=== PATIENT | female | born 1960 | race Caucasian/White ===

== ENCOUNTER 2021-08-10 00:20 | Day surgery (SDC) | payer MEDICARE, SELFPAY ==
[2021-08-02 15:07] VITALS: BMI 19.8
[2021-08-10 06:50] VITALS: BP 171/98; PULSE 91; RESP 20; TEMP 36.2; O2SAT 97
[2021-08-10] MEDS: LACTATED RINGERS 1,000 ML 30 ML IV CONT (06:58)
--- NOTE | 2021-08-10 07:11 | WPDANESEPPF ---
Anes - Initial Pre Proc Eval Procedure: Operation Date: 08/10/21 07:30 Proposed Procedures p Excision of Right Volar Wrist Ganglion Cyst - Ammon Barber MD Date/Time: 08/10/21 07:11 Surgeon: Ammon Barber MD Pre Op Diagnosis: Right Volar Wrist Ganglion Cyst Patient Data Age: 60 Gender: F Height: 1.55 m Weight: 42.75 kg Last Vital Signs Temp 36.2 C L 08/10/21 06:50 Pulse 91 08/10/21 06:50 Resp 20 08/10/21 06:50 BP 171/98 H 08/10/21 06:50 Pulse Ox 97 08/10/21 06:50 Allergies Allergy/AdvReac Type Severity Reaction Status Date / Time chlorpheniramine AdvReac Severe Nausea and Verified 08/10/21 06:57 Vomiting dextromethorphan AdvReac Severe Nausea and Verified 08/10/21 06:57 Vomiting diphenhydramine AdvReac Severe Nausea and Verified 08/02/21 14:55 Vomiting guaifenesin AdvReac Severe Nausea and Verified 08/10/21 06:57 Vomiting ibuprofen AdvReac Severe Nausea and Verified 08/02/21 14:55 Vomiting iodine AdvReac Severe Nausea and Unverified 08/02/21 14:55 Vomiting loratadine AdvReac Severe Nausea and Verified 08/10/21 06:57 Vomiting morphine AdvReac Severe Nausea and Verified 08/02/21 14:55 Vomiting phenylephrine AdvReac Severe Nausea and Verified 08/10/21 06:57 Vomiting phenylpropanolamine AdvReac Severe Nausea and Verified 08/10/21 06:57 Vomiting phenyltoloxamine AdvReac Severe Nausea and Verified 08/10/21 06:57 Vomiting pseudoephedrine AdvReac Severe Nausea and Verified 08/10/21 06:57 Vomiting Home Medications Medication Instructions Recorded Confirmed Type desipramine [Norpramin] 25 mg PO HS 08/02/21 08/02/21 History gabapentin 300 mg PO TID 08/02/21 08/10/21 History hydrocodone-acetaminophen 1 tablet PO Q6H PRN 08/02/21 08/10/21 History metoprolol succinate 25 mg PO DAILY 08/02/21 08/10/21 History pantoprazole [Protonix] 40 mg PO QAM 08/02/21 08/10/21 History Patient hx anesthesia problems: none Family hx anesthesia problems: none Results Review: All pre-operative results and documents have been reviewed as part of the pre-operative evaluation. [facility] Past Medical History Medical History Anxiety Chronic pain syndrome Ulcerative colitis Social History Social History Smoking packs per day: 1 Smoking cigarettes per day: 20.0 Years smoked: 2 Smoking pack-years: 2.00 Smoking status: Former smoker Tobacco type: cigarettes Substance use: current Substance use type: marijuana Other substance usage details: a couple times a week. Living arrangements: with family Spiritual care concerns: No Anes - Eval Final PreProcedure Day of Procedure 08/10/21 07:11 Patient weight: normal Heart: regular rate and rhythm Lungs: clear to auscultation Airway: Mallampati scale class 1 Neurological: other (alert) Last oral intake: >/= 8 hours ASA classification: III Emergent: no Anesthetic plan: proceed Anesthesia type and monitoring: general GIVS and standard monitoring Results Review: All pre-operative results and documents have been reviewed as part of the pre-operative evaluation. Informed Consent: The patient's anesthetic plan and its attendant risks and benefits were discussed with the patient/family/POA. Questions were solicited and answers provided to the satisfaction of the patient/family/POA.
--- NOTE | 2021-08-10 07:24 | WPDHPUPDATE1 ---
History and Physical Update Update Date/Time: 08/10/21 07:24 History and Physical has been reviewed, including an updated exam of the patient. There are NO changes in the patient's condition. Risks, benefits, and alternatives have been discussed and questions answered. Patient agrees to proceed with procedure.
--- NOTE | 2021-08-10 07:25 | WPDHPUPDATE1 ---
History and Physical Update Update Date/Time: 08/10/21 07:25 History and Physical has been reviewed, including an updated exam of the patient. There are NO changes in the patient's condition. Risks, benefits, and alternatives have been discussed and questions answered. Patient agrees to proceed with procedure.
[2021-08-10] MEDS: LIDO 1%/EPINEPHRINE 1:100,000 50 ML VIAL INFILTRATE (08:13)
[2021-08-10 08:21] VITALS: BP 104/43; PULSE 59; RESP 12; O2SAT 100
[2021-08-10 08:30] VITALS: BP 112/64; PULSE 66; RESP 20
[2021-08-10 08:45] VITALS: BP 117/54; PULSE 60; RESP 20
[2021-08-10 09:15] VITALS: BP 165/67; PULSE 54; RESP 12
--- NOTE | 2021-08-11 11:50 | P.OP_ITS ---
Procedure Note - Detailed Date of Procedure 08/10/21 Pre-op Diagnosis Right Volar Wrist Ganglion Cyst Post-op Diagnosis same Procedure Performed Right open carpal tunnel release Surgeon Ammon Barber MD Anesthesia MAC Description of Procedure The site overlying the right carpal tunnel was marked in the holding area. The patient was taken to the operating room where she was placed supine on the operating table. A time-out was held and confirmed. The extremity was prepped and draped in usual fashion. Patient was given IV sedation. The marking was remade palm and locally infiltrated with 1% lidocaine with epinephrine. The tourniquet was inflated to 250 mmHg. The incision was made as marked and dis section was carried bluntly through the subcutaneous tissue to the palmar aponeurosis. This and the flexor retinaculum were incised with a 15 blade. Under 3 point retraction ligament was divided distally and proximally to completely release it. There was no unusual anatomy noted. The skin was closed with interrupted 5 0 nylon sutures. A small bandage with Len wrap was applied and the patient was discharged from the operating room stable condition Estimated Blood Loss 0 Drains No Packing No Pathology none sent Complications No immediate complications Condition stable Disposition same day
--- NOTE | 2021-08-11 16:48 | W.PM.PROC2 ---
Procedure Note - Detailed Date of Procedure 08/10/21 Pre-op Diagnosis Right Volar Wrist Ganglion Cyst Post-op Diagnosis same Procedure Performed Excision of right volar wrist ganglion cyst Surgeon Ammon Barber MD Anesthesia MAC and local Indications Tender ganglion cyst right volar wrist Findings ganglion cyst Description of Procedure The mass over the right volar wrist was marked on the patient's upper extremity in the holding area. the patient was taken to the operating room and placed supine on the operating table. The right upper extremity was prepped over a separate hand table as patient was given IV sedation. The site was marked for an incision and locally infiltrated with 1% lidocaine with epinephrine. The extremity was exsanguinated the tourniquet inflated to 250 mmHg. The dog leg incision was made as marked. The cyst was readily identified in the thin subcutaneous tissue. Part of it lay along the flexor carpi radialis. This was stripped down toward the origin of the cyst which lay over the radial carpal joint. The site where the cyst penetrated through capsule was identified and the cyst was avulsed from that point. Electrocautery was used to control bleeding. The tourniquet was released prior to closure. The skin was closed with intradermal 4-0 Monocryl sutures. The usual bandage was applied. The patient was discharged from the operating room. She has instructions in wound care and follow-up and a prescription for analgesics. Estimated Blood Loss 3 Drains No Packing No Pathology none sent Complications No immediate complications Condition stable Disposition same day
== END 2021-08-10 09:27 | disposition home or self-care (01) ==
PROVIDERS: PCP Internal Medicine; Visit Provider Plastic Surgery
PROC: (CPT 25111; principal; 2021-08-10 07:30)
DX: M67.431 Ganglion, right wrist (principal); F41.9 Anxiety disorder, unspecified; G89.4 Chronic pain syndrome; K51.90 Ulcerative colitis, unspecified, without complications; Z87.891 Personal history of nicotine dependence; F12.90 Cannabis use, unspecified, uncomplicated
CPT/HCPCS: 25111; A9270; J2250; J2405; J2704; J3010; J7120

== ENCOUNTER 2021-12-14 00:02 | Day surgery (SDC) | payer MEDICARE, SELFPAY ==
[2021-12-02 13:56] VITALS: BMI 19.5
--- NOTE | 2021-12-13 21:44 | WPDGICN ---
Assessment and Plan Assessment and plan (1) Colon cancer screening: Code(s): Z12.11 - Encounter for screening for malignant neoplasm of colon Status: Acute Assessment and Plan: Colonoscopy with possible biopsy or polypectomy or cautery or injection of substances. GI Consult Note Consult date/time: 12/13/21 21:44 HPI: Karoline Hoffman is a 61 year old female referred for colon cancer screening. She had performed a FIT (cologuard0)test which was positive. she tearfully explains that she was told by her primary care physician's office staff that you have a problem, there was blood in your stool, and you have colon cancer explain her that the Cologuard test has about 50% false positives and the other half of the time we usually find polyps. I told her that we find cancer only about 2% of the time that we have a positive Cologuard test. Explain that we can usually removed polyps. And the most colon cancer arises from a polyp Review of Systems Review of Systems: All systems reviewed & are unremarkable except as noted in HPI and below PMFSH Past Medical History Medical History Anxiety Chronic narcotic use Chronic pain syndrome HTN (hypertension) Ulcerative colitis Social History Social History Smoking packs per day: 1 Smoking cigarettes per day: 20.0 Years smoked: 2 Smoking pack-years: 2.00 Smoking status: Never smoker Tobacco type: cigarettes Alcohol intake: never Substance use: current Substance use type: marijuana Other substance usage details: Daily Living arrangements: with family Spiritual care concerns: No Meds Home Medications and Allergies Home Medications Medication Instructions Recorded Confirmed Type gabapentin 300 mg PO TID 08/02/21 12/14/21 History hydrocodone-acetaminophen 1 tablet PO Q6H PRN 08/02/21 12/14/21 History metoprolol succinate 25 mg PO DAILY 08/02/21 12/14/21 History pantoprazole [Protonix] 40 mg PO QAM 08/02/21 12/14/21 History tizanidine 4 mg PO BID PRN 11/03/21 12/14/21 History Allergies Allergy/AdvReac Type Severity Reaction Status Date / Time chlorpheniramine AdvReac Severe Nausea and Verified 12/14/21 08:09 Vomiting dextromethorphan AdvReac Severe Nausea and Verified 12/14/21 08:09 Vomiting diphenhydramine AdvReac Severe Nausea and Verified 12/14/21 08:09 Vomiting guaifenesin AdvReac Severe Nausea and Verified 12/14/21 08:09 Vomiting ibuprofen AdvReac Severe Nausea and Verified 12/14/21 08:09 Vomiting iodine AdvReac Severe Nausea and Verified 12/14/21 08:09 Vomiting loratadine AdvReac Severe Nausea and Verified 12/14/21 08:09 Vomiting morphine AdvReac Severe Nausea and Verified 12/14/21 08:09 Vomiting phenylephrine AdvReac Severe Nausea and Verified 12/14/21 08:09 Vomiting phenylpropanolamine AdvReac Severe Nausea and Verified 12/14/21 08:09 Vomiting phenyltoloxamine AdvReac Severe Nausea and Verified 12/14/21 08:09 Vomiting pseudoephedrine AdvReac Severe Nausea and Verified 12/14/21 08:09 Vomiting Exam Const: General: alert Orientation/consciousness: patient oriented x3 Resp: Auscultation: clear to auscultation bilaterally Cardio: Rhythm: regular rhythm GI: GI Palp: Yes Soft to palpation and No Tenderness to palpation present (GI) Neuro: General: patient oriented x3 [facility] Consult Billing Observation Consult 13721 New Pt Lvl 2 Strfd
[2021-12-14 07:58] VITALS: BP 187/76; PULSE 95; RESP 18; TEMP 36.8; O2SAT 95; BMI 17.4
--- NOTE | 2021-12-14 08:13 | WPDANESEPPF ---
Anes - Initial Pre Proc Eval Procedure: Operation Date: 12/14/21 09:30 Proposed Procedures p Colonoscopy - Hayden Garcia MD Date/Time: 12/14/21 08:13 Surgeon: Hayden Garcia MD Pre Op Diagnosis: positive cologuard Patient Data Age: 61 Gender: F Height: 1.55 m Weight: 47 kg Allergies Allergy/AdvReac Type Severity Reaction Status Date / Time chlorpheniramine AdvReac Severe Nausea and Verified 12/14/21 08:09 Vomiting dextromethorphan AdvReac Severe Nausea and Verified 12/14/21 08:09 Vomiting diphenhydramine AdvReac Severe Nausea and Verified 12/14/21 08:09 Vomiting guaifenesin AdvReac Severe Nausea and Verified 12/14/21 08:09 Vomiting ibuprofen AdvReac Severe Nausea and Verified 12/14/21 08:09 Vomiting iodine AdvReac Severe Nausea and Verified 12/14/21 08:09 Vomiting loratadine AdvReac Severe Nausea and Verified 12/14/21 08:09 Vomiting morphine AdvReac Severe Nausea and Verified 12/14/21 08:09 Vomiting phenylephrine AdvReac Severe Nausea and Verified 12/14/21 08:09 Vomiting phenylpropanolamine AdvReac Severe Nausea and Verified 12/14/21 08:09 Vomiting phenyltoloxamine AdvReac Severe Nausea and Verified 12/14/21 08:09 Vomiting pseudoephedrine AdvReac Severe Nausea and Verified 12/14/21 08:09 Vomiting Home Medications Medication Instructions Recorded Confirmed Type gabapentin 300 mg PO TID 08/02/21 12/14/21 History hydrocodone-acetaminophen 1 tablet PO Q6H PRN 08/02/21 12/14/21 History metoprolol succinate 25 mg PO DAILY 08/02/21 12/14/21 History pantoprazole [Protonix] 40 mg PO QAM 08/02/21 12/14/21 History tizanidine 4 mg PO BID PRN 11/03/21 12/14/21 History Patient hx anesthesia problems: none Family hx anesthesia problems: none Results Review: All pre-operative results and documents have been reviewed as part of the pre-operative evaluation. [facility] Past Medical History Medical History (Updated 12/14/21 @ 08:20 by Joselo Mccain MD) Anxiety Chronic narcotic use Chronic pain syndrome HTN (hypertension) Ulcerative colitis Social History Social History Smoking packs per day: 1 Smoking cigarettes per day: 20.0 Years smoked: 2 Smoking pack-years: 2.00 Smoking status: Never smoker Tobacco type: cigarettes Alcohol intake: never Substance use: current Substance use type: marijuana Other substance usage details: Daily Living arrangements: with family Spiritual care concerns: No Anes - Eval Final PreProcedure Day of Procedure 12/14/21 08:13 Patient weight: normal Heart: regular rate and rhythm Lungs: clear to auscultation and normal air movement Airway: Mallampati scale class II Neurological: alert and oriented Last oral intake: >/= 8 hours ASA classification: III Emergent: no Anesthetic plan: proceed Anesthesia type and monitoring: general GIVS Results Review: All pre-operative results and documents have been reviewed as part of the pre-operative evaluation. Informed Consent: The patient's anesthetic plan and its attendant risks and benefits were discussed with the patient/family/POA. Questions were solicited and answers provided to the satisfaction of the patient/family/POA.
[2021-12-14] MEDS: LACTATED RINGERS 1,000 ML 150 ML IV CONT (08:22)
[2021-12-14 09:42] VITALS: BP 176/98; PULSE 86; RESP 16; O2SAT 100
[2021-12-14 09:52] VITALS: BP 178/99; PULSE 79; RESP 21; O2SAT 100
[2021-12-14 10:02] VITALS: BP 180/85; PULSE 76; RESP 20; O2SAT 100
== END 2021-12-14 10:10 | disposition home or self-care (01) ==
PROVIDERS: PCP Internal Medicine; Visit Provider Internal Medicine Gastroenterology
PROC: 0DJD8ZZ Inspection of Lower Intestinal Tract, Via Natural or Artificial Opening Endoscopic (ICD-10-PCS; CPT 45378; principal; 2021-12-14 09:30)
DX: Z12.11 Encounter for screening for malignant neoplasm of colon (principal); R19.5 Other fecal abnormalities; K57.30 Diverticulosis of large intestine without perforation or abscess without bleeding; D12.5 Benign neoplasm of sigmoid colon; I10 Essential (primary) hypertension; F41.9 Anxiety disorder, unspecified; G89.4 Chronic pain syndrome; Z79.891 Long term (current) use of opiate analgesic; F12.90 Cannabis use, unspecified, uncomplicated
CPT/HCPCS: 45385; 88305; J2704; J7120

== ENCOUNTER 2022-01-12 01:06 | Day surgery (SDC) | payer MEDICARE, SELFPAY ==
[2022-01-03 12:32] VITALS: BMI 18.7
[2022-01-12 09:46] VITALS: BP 153/78; PULSE 73; RESP 20; TEMP 37.3; O2SAT 99
[2022-01-12] MEDS: LACTATED RINGERS 1,000 ML 150 ML IV CONT (09:53)
--- NOTE | 2022-01-12 10:23 | WPDGICN ---
Assessment and Plan Assessment and plan (1) Epigastric pain: Code(s): R10.13 - Epigastric pain Status: Acute (2) Abnormal CT scan, gastrointestinal tract: Code(s): R93.3 - Abnormal findings on diagnostic imaging of other parts of digestive tract Status: Acute Assessment and Plan: EGD with possible biopsy or dilatation or cautery. GI Consult Note Consult date/time: 01/12/22 10:23 HPI: aKroline Hoffman is a 61 year old female Who was referred for investigation of epigastric and right upper quadrant pain. This has been present for a couple of months. It is present daily it comes and goes without any particular pattern. It is at times tight at times the sore feeling. She has a lot of nausea as well. She has chronic medical conditions for which reason she takes hydrocodone but she does not use any NSAIDs. A CT scan of the abdomen was done which showed thickening of the gastric fundus as well as irregularity of the gastric antrum and proximal duodenum. She has had not a significant amount of weight loss. Review of Systems Review of Systems: All systems reviewed & are unremarkable except as noted in HPI and below PMFSH Past Medical History Medical History Anxiety Chronic narcotic use Chronic pain syndrome HTN (hypertension) Ulcerative colitis Social History Social History Smoking packs per day: 1 Smoking cigarettes per day: 20.0 Years smoked: 2 Smoking pack-years: 2.00 Smoking status: Never smoker Tobacco type: cigarettes Alcohol intake: never Substance use: current Substance use type: marijuana Other substance usage details: Daily Living arrangements: with family Spiritual care concerns: No Meds Home Medications and Allergies Home Medications Medication Instructions Recorded Confirmed Type gabapentin 300 mg PO TID 08/02/21 01/03/22 History hydrocodone-acetaminophen 1 tablet PO Q6H PRN 08/02/21 01/03/22 History metoprolol succinate 25 mg PO DAILY 08/02/21 01/03/22 History pantoprazole [Protonix] 40 mg PO QAM 08/02/21 01/03/22 History tizanidine 4 mg PO BID PRN 11/03/21 01/03/22 History Allergies Allergy/AdvReac Type Severity Reaction Status Date / Time chlorpheniramine AdvReac Severe Nausea and Verified 01/12/22 09:42 Vomiting dextromethorphan AdvReac Severe Nausea and Verified 01/12/22 09:42 Vomiting diphenhydramine AdvReac Severe Nausea and Verified 01/12/22 09:42 Vomiting guaifenesin AdvReac Severe Nausea and Verified 01/12/22 09:42 Vomiting ibuprofen AdvReac Severe Nausea and Verified 01/12/22 09:42 Vomiting iodine AdvReac Severe Nausea and Verified 01/12/22 09:42 Vomiting loratadine AdvReac Severe Nausea and Verified 01/12/22 09:42 Vomiting morphine AdvReac Severe Nausea and Verified 01/12/22 09:42 Vomiting phenylephrine AdvReac Severe Nausea and Verified 01/12/22 09:42 Vomiting phenylpropanolamine AdvReac Severe Nausea and Verified 01/12/22 09:42 Vomiting phenyltoloxamine AdvReac Severe Nausea and Verified 01/12/22 09:42 Vomiting pseudoephedrine AdvReac Severe Nausea and Verified 01/12/22 09:42 Vomiting Vital Signs Vital Signs - 24 hr 01/12/22 09:46 Temperature 37.3 C Pulse Rate 73 Respiratory Rate 20 Blood Pressure 153/78 H Pulse Oximetry 99 Exam Const: General: alert Orientation/consciousness: patient oriented x3 Resp: Auscultation: clear to auscultation bilaterally Cardio: Rhythm: regular rhythm GI: GI Palp: Yes Soft to palpation and No Tenderness to palpation present (GI) Neuro: General: patient oriented x3
--- NOTE | 2022-01-12 10:30 | WPDANESEPPF ---
Anes - Initial Pre Proc Eval Procedure: Operation Date: 01/12/22 11:00 Proposed Procedures p Esophagogastroduodenoscopy - Hayden Garcia MD Date/Time: 01/12/22 10:30 Surgeon: Hayden Garcia MD Pre Op Diagnosis: right UQP Patient Data Age: 61 Gender: F Height: 1.55 m Weight: 42.1 kg Last Vital Signs Temp 99.1 F 01/12/22 09:46 Pulse 73 01/12/22 09:46 Resp 20 01/12/22 09:46 BP 153/78 H 01/12/22 09:46 Pulse Ox 99 01/12/22 09:46 Allergies Allergy/AdvReac Type Severity Reaction Status Date / Time chlorpheniramine AdvReac Severe Nausea and Verified 01/12/22 09:42 Vomiting dextromethorphan AdvReac Severe Nausea and Verified 01/12/22 09:42 Vomiting diphenhydramine AdvReac Severe Nausea and Verified 01/12/22 09:42 Vomiting guaifenesin AdvReac Severe Nausea and Verified 01/12/22 09:42 Vomiting ibuprofen AdvReac Severe Nausea and Verified 01/12/22 09:42 Vomiting iodine AdvReac Severe Nausea and Verified 01/12/22 09:42 Vomiting loratadine AdvReac Severe Nausea and Verified 01/12/22 09:42 Vomiting morphine AdvReac Severe Nausea and Verified 01/12/22 09:42 Vomiting phenylephrine AdvReac Severe Nausea and Verified 01/12/22 09:42 Vomiting phenylpropanolamine AdvReac Severe Nausea and Verified 01/12/22 09:42 Vomiting phenyltoloxamine AdvReac Severe Nausea and Verified 01/12/22 09:42 Vomiting pseudoephedrine AdvReac Severe Nausea and Verified 01/12/22 09:42 Vomiting Home Medications Medication Instructions Recorded Confirmed Type gabapentin 300 mg PO TID 08/02/21 01/03/22 History hydrocodone-acetaminophen 1 tablet PO Q6H PRN 08/02/21 01/03/22 History metoprolol succinate 25 mg PO DAILY 08/02/21 01/03/22 History pantoprazole [Protonix] 40 mg PO QAM 08/02/21 01/03/22 History tizanidine 4 mg PO BID PRN 11/03/21 01/03/22 History Patient hx anesthesia problems: none Family hx anesthesia problems: none Results Review: All pre-operative results and documents have been reviewed as part of the pre-operative evaluation. [facility] Past Medical History Medical History Anxiety Chronic narcotic use Chronic pain syndrome HTN (hypertension) Ulcerative colitis Social History Social History Smoking packs per day: 1 Smoking cigarettes per day: 20.0 Years smoked: 2 Smoking pack-years: 2.00 Smoking status: Never smoker Tobacco type: cigarettes Alcohol intake: never Substance use: current Substance use type: marijuana Other substance usage details: Daily Living arrangements: with family Spiritual care concerns: No Anes - Eval Final PreProcedure Day of Procedure 01/12/22 10:30 Patient weight: normal Heart: regular rate and rhythm Lungs: clear to auscultation Airway: Mallampati scale class II Neurological: alert and oriented Last oral intake: >/= 8 hours ASA classification: III Emergent: no Anesthetic plan: proceed Anesthesia type and monitoring: general GIVS and standard monitoring Results Review: All pre-operative results and documents have been reviewed as part of the pre-operative evaluation. Informed Consent: The patient's anesthetic plan and its attendant risks and benefits were discussed with the patient/family/POA. Questions were solicited and answers provided to the satisfaction of the patient/family/POA.
[2022-01-12 10:51] VITALS: BP 136/75; PULSE 72; RESP 24; O2SAT 100
[2022-01-12 11:01] VITALS: BP 146/81; PULSE 60; RESP 19; O2SAT 100
[2022-01-12 11:11] VITALS: BP 157/82; PULSE 62; RESP 25; O2SAT 100
== END 2022-01-12 11:20 | disposition home or self-care (01) ==
PROVIDERS: PCP Internal Medicine; Visit Provider Internal Medicine Gastroenterology
PROC: 0DJ08ZZ Inspection of Upper Intestinal Tract, Via Natural or Artificial Opening Endoscopic (ICD-10-PCS; CPT 43235; principal; 2022-01-12 11:00)
DX: R10.13 Epigastric pain (principal); K21.9 Gastro-esophageal reflux disease without esophagitis; K29.60 Other gastritis without bleeding; F41.9 Anxiety disorder, unspecified; I10 Essential (primary) hypertension; F12.90 Cannabis use, unspecified, uncomplicated
CPT/HCPCS: 43239; 87081; 88305; J2704; J7120